=== PATIENT | female | born 1950 | race Caucasian/White ===

== ENCOUNTER 2016-11-20 13:32 | Outpatient (CLI) | payer MEDICARE, MEDICAID ==
[2016-11-20 18:09] LABS: ALBUMIN/GLOBULIN RATIO 1.4 (1.0-2.2); BILIRUBIN,TOTAL 0.7 mg/dL (0.2-1.0); CALCIUM 9.4 mg/dL (8.5-10.3); CREATININE 0.8 mg/dL (0.4-1.0); POTASSIUM 3.8 mmol/L (3.5-5.0); TOTAL PROTEIN 6.8 g/dL (6.7-8.2)
[2016-11-20 18:20] LABS: BASOPHILS # (AUTO) 0.1 10^3/uL (0.0-0.1); BASOPHILS % (AUTO) 0.7 %; EOSINOPHILS # (AUTO) 0.4 10^3/uL (0.0-0.7); EOSINOPHILS % (AUTO) 5.2 %; HGB - HEMOGLOBIN 14.3 g/dL (12.0-16.0); LYMPHOCYTES # (AUTO) 2.1 10^3/uL (1.5-3.5); LYMPHOCYTES % (AUTO) 29.7 %; MEAN CORPUSCULAR HEMOGLOBIN 31.2 pg (27.0-31.0); MEAN CORPUSCULAR VOLUME 91.7 fL (81.0-99.0); MEAN PLATELET VOLUME 7.7 fL (7.9-10.8); MONOCYTES # (AUTO) 0.9 10^3/uL (0.0-1.0); MONOCYTES % (AUTO) 11.9 %; NEUTROPHILS # (AUTO) 3.8 10^3/uL (1.5-6.6); NEUTROPHILS % (AUTO) 52.5 %; RED BLOOD COUNT 4.58 10^6/uL (4.20-5.40); RED CELL DISTRIBUTION WIDTH 13.5 % (12.0-15.0); UNCORRECTED WHITE BLOOD COUNT 7.2 x10^3/uL; WHITE BLOOD COUNT 7.2 x10^3/uL (4.8-10.8)
[2016-11-20 18:30] LABS: HEMOGLOBIN A1C 0.61 g/dL
== END 2016-11-20 13:33 | disposition home or self-care (01) ==
LOC: LAB.F 13:32
PROVIDERS: ATTEND Nurse Practitioner Family
DX: K76.89 Other specified diseases of liver (principal); R73.9 Hyperglycemia, unspecified; F32.9 Major depressive disorder, single episode, unspecified
CPT/HCPCS: 36415; 80053; 83036; 84443; 85025

== ENCOUNTER 2017-04-01 09:16 | Outpatient (CLI) | payer MEDICARE, MEDICAID ==
--- NOTE | 2017-04-01 13:10 | Ultrasound Report ---
COMPLETE ABDOMINAL ULTRASOUND: 04/01/2017 CLINICAL INDICATION: Elevated LFTs, umbilical tender palpable abnormality. TECHNIQUE: Real-time scanning was performed with sales representative publications static images obtained. FINDINGS: The liver measures 15.8 cm. Hepatic echogenicity is increased, compatible with fatty infi ltration, with some focal sparing adjacent to the gallbladder fossa. No suspicious hepatic lesion or intrahepatic biliary dilatation is present. The common bile duct measures 8 mm. The gallbladder de monstrates no cholelithiasis. There is a small echogenic focus adherent to the anterior wall, which may represent a tiny polyp or focus of adherent tumefactive sludge. The pancreas is obscured by kendall l gas. The kidneys are normal, with the right measuring 9.4 cm, and the left measuring 9.2 cm. The spleen measures 9.6 cm, and demonstrates normal echotexture. The abdominal aorta is normal in calibe r throughout. The inferior vena cava is unremarkable. Scanning of the tender palpable abnormality a t the umbilicus demonstrates a focus of echogenic fat, likely within a hernia, but visualization of t he hernia neck is limited by shadowing from the umbilicus. This may be better evaluated with CT. Th e lesion within the hernia sac measures approximately 2 cm in diameter. IMPRESSION: 1. FATTY INFILTRATION OF THE LIVER. 2. TINY FOCUS OF ADHERENT TUMEFACTIVE SLUDGE OR TINY GALLBLADDER WALL POLYP. NO CHOLELITHIASIS. 3. LIKELY UMBILICAL HERNIA, WITH HERNIA SAC MEASURING 2 CM. THE NECK OF THE HERNIA IS DIFFICULT TO VISUALIZE, DUE TO SHADOWING FROM THE UMBILICUS. THIS COULD BE BETTER EVALUATED WITH CT. JOB #: [id number] EXT JOB #:[id number]
== END 2017-04-01 09:17 | disposition home or self-care (01) ==
LOC: DI 09:16
PROVIDERS: ATTEND Nurse Practitioner Family
DX: K76.0 Fatty (change of) liver, not elsewhere classified (principal)
CPT/HCPCS: 76700

== ENCOUNTER 2017-09-15 14:34 | Outpatient (CLI) | payer MEDICARE ==
--- NOTE | 2017-09-15 15:47 | Ultrasound Report ---
PELVIC ULTRASOUND: 09/15/2017 CLINICAL INDICATION: Postmenopausal bleeding. TECHNIQUE: Transabdominal pelvic ultrasound performed for global evaluation. Transvaginal pelvic ultrasound performed for detailed evaluation. Real-time scanning performed and static images obtained. FINDINGS: The uterus is anteverted, measuring 9.9 x 4.3 x 3.2 cm. There is a 3.1 cm leiomyoma in the fundus, obscuring the endometrial canal. The right ovary measures 2.3 x 2.0 x 1.5 cm, and is unremarkable. The left ovary measures 2.5 x 1.8 x 1.7 cm, and is unremarkable. No free fluid is present. IMPRESSION: FUNDAL LEIOMYOMA, OBSCURING THE ENDOMETRIAL CANAL. CORRELATION WITH ENDOMETRIAL BIOPSY IS RECOMMENDED, GIVEN THE HISTORY OF POSTMENOPAUSAL BLEEDING. TD: 09/15/2017 15:45
== END 2017-09-15 14:35 | disposition home or self-care (01) ==
LOC: DI 14:34
PROVIDERS: ATTEND Nurse Practitioner Family
DX: D25.9 Leiomyoma of uterus, unspecified (principal)
CPT/HCPCS: 76830; 76856

== ENCOUNTER 2017-09-17 10:00 | Outpatient (CLI) | payer MEDICAID, MEDICARE | END 2017-09-17 10:01 | disposition home or self-care (01) | LOC: LAB.R 10:00 | PROVIDERS: ATTEND Nurse Practitioner Family | DX: N95.9 Unspecified menopausal and perimenopausal disorder (principal); R82.90 Unspecified abnormal findings in urine | CPT/HCPCS: 87086 ==

== ENCOUNTER 2017-10-06 11:06 | Outpatient (CLI) | payer MEDICARE ==
--- NOTE | 2017-10-07 10:28 | Mammography Report ---
DIGITAL SCREENING MAMMOGRAM: 10/06/2017 CLINICAL INDICATION: A 67-year-old with history of late childbearing, family history of breast cancer, history of benign biopsy for screening. COMPARISON: 11/2012, 11/2010, 10/2010, 03/2010. TECHNIQUE: Routine CC and MLO projections were obtained of the breasts. FINDINGS: The breasts demonstrate heterogeneously dense fibroglandular parenchyma bilaterally. A few punctate, typically benign calcifications are present. No suspicious masses, clustered microcalcifications, or regions of architectural distortion are identified. IMPRESSION: BENIGN FINDINGS. RECOMMENDATION: Routine annual screening unless otherwise clinically indicated. BIRADS CATEGORY 2 - BENIGN FINDINGS. STANDARD QUALIFYING STATEMENTS: 1. This examination was reviewed with the aid of Computer-Aided Detection (CAD). 2. A negative or benign imaging report should not delay biopsy if clinically suspicious findings are present. Consider surgical consultation if warranted. More than 5% of cancers are not identified by imaging. 3. Dense breasts may obscure an underlying neoplasm. TD: 10/07/2017 10:27
== END 2017-10-06 11:07 | disposition home or self-care (01) ==
LOC: DI.S 11:06
PROVIDERS: ATTEND Nurse Practitioner Family
DX: Z12.31 Encounter for screening mammogram for malignant neoplasm of breast (principal); Z80.3 Family history of malignant neoplasm of breast
CPT/HCPCS: 77067

== ENCOUNTER 2017-12-09 14:33 | Outpatient (CLI) | payer MEDICARE ==
[2017-12-09 18:02] LABS: BASOPHILS # (AUTO) 0.1 10^3/uL (0.0-0.1); BASOPHILS % (AUTO) 0.8 %; EOSINOPHILS # (AUTO) 0.5 10^3/uL (0.0-0.7); EOSINOPHILS % (AUTO) 6.2 %; HGB - HEMOGLOBIN 14.3 g/dL (12.0-16.0); LYMPHOCYTES # (AUTO) 1.9 10^3/uL (1.5-3.5); LYMPHOCYTES % (AUTO) 24.6 %; MEAN CORPUSCULAR HEMOGLOBIN 31.8 pg (27.0-31.0); MEAN CORPUSCULAR HGB CONC 34.4 g/dL (32.0-36.0); MEAN CORPUSCULAR VOLUME 92.4 fL (81.0-99.0); MEAN PLATELET VOLUME 7.4 fL (7.9-10.8); MONOCYTES # (AUTO) 0.8 10^3/uL (0.0-1.0); MONOCYTES % (AUTO) 10.1 %; NEUTROPHILS # (AUTO) 4.5 10^3/uL (1.5-6.6); NEUTROPHILS % (AUTO) 58.3 %; PLT - PLATELET COUNT 280 10^3/uL (130-450); RED CELL DISTRIBUTION WIDTH 13.4 % (12.0-15.0); WHITE BLOOD COUNT 7.8 x10^3/uL (4.8-10.8)
[2017-12-09 19:34] LABS: RHEUMATOID FACTOR NEGATIVE (Negative)
[2017-12-11 13:38] LABS: ANA SCREEN NEGATIVE (NEGATIVE)
== END 2017-12-09 14:34 | disposition home or self-care (01) ==
LOC: LAB.F 14:33
PROVIDERS: ATTEND Nurse Practitioner Family
DX: M25.552 Pain in left hip (principal); M79.641 Pain in right hand
CPT/HCPCS: 36415; 85025; 85651; 86038; 86140; 86200; 86430

== ENCOUNTER 2017-12-19 09:22 | Outpatient (CLI) | payer MEDICARE | END 2017-12-19 09:23 | disposition home or self-care (01) | LOC: LAB.F 09:22 | PROVIDERS: ATTEND Nurse Practitioner Family | DX: Z53.9 Procedure and treatment not carried out, unspecified reason (principal) ==

== ENCOUNTER 2017-12-29 08:33 | Outpatient (CLI) | payer MEDICARE, MEDICAID ==
[2017-12-29 12:03] LABS: HB2 TOTAL 15.7 g/dL; HEMOGLOBIN A1C 0.58 g/dL; HEMOGLOBIN A1C % 5.5 % (4.6-6.2)
[2017-12-29 12:32] LABS: ALBUMIN 3.5 g/dL (3.2-5.5); ALBUMIN/GLOBULIN RATIO 1.3 (1.0-2.2); ALKALINE PHOSPHATASE 52 IU/L (42-121); ALT ALANINE AMINOTRANSFERASE 90 IU/L (10-60); AST ASPARTATE AMINOTRANSFERASE 77 IU/L (10-42); BUN - BLOOD UREA NITROGEN 17 mg/dL (6-20); CALCIUM 8.9 mg/dL (8.5-10.3); CARBON DIOXIDE - CO2 30 mmol/L (21-32); CHLORIDE 103 mmol/L (101-111); CHOL/HDL RATIO 1.9 (<4.4); CHOLESTEROL 138 mg/dL; CREATININE 0.7 mg/dL (0.4-1.0); GFR - MDRD 83 (>89); GLUCOSE 108 mg/dL (70-100); HDL CHOLESTEROL 73 mg/dL; LDL CHOLESTEROL,CALCULATED 55 mg/dL; LDL/HDL RATIO 0.8 (<4.4); SODIUM 139 mmol/L (135-145); TOTAL PROTEIN 6.2 g/dL (6.7-8.2); VLDL CHOLESTEROL 10 mg/dL
== END 2017-12-29 08:34 | disposition home or self-care (01) ==
LOC: LAB.F 08:33
PROVIDERS: ATTEND Nurse Practitioner Family
DX: I10 Essential (primary) hypertension (principal); R73.9 Hyperglycemia, unspecified; N95.0 Postmenopausal bleeding
CPT/HCPCS: 36415; 80053; 80061; 83036; 83721; 84443

== ENCOUNTER 2018-01-07 08:31 | Outpatient (CLI) | payer MEDICARE, MEDICAID ==
--- NOTE | 2018-01-07 09:42 | XRAY Report ---
Procedure Date: 01/07/2018 Accession Number: [id number] / [id number] Procedure: XR - Lumbar Spine 2 View CPT Code: FULL RESULT: EXAM: Lumbar Spine 2 View DATE: 01/07/2018 9:17 AM CLINICAL HISTORY: LOW BACK AND HIP JOINT PAIN COMPARISON: 03/22/2013. TECHNIQUE: 2 views. FINDINGS: Alignment: Interval improvement in previously seen dextroscoliosis. No listhesis. Bones: Five gac-voy-vhwcmcv lumbar vertebral bodies are present. No fractures or bone lesions. Disks: Mild loss of disc space height most pronounced at T11-T12, T12-L1 and L1-L2. Facets: Minimal degenerative changes at L4-L5. Sacroiliac Joints: Unremarkable. Soft Tissues: Normal. The visualized bowel gas pattern is normal. IMPRESSION: Interval improvement in previously seen scoliosis, possibly positional. RADIA
--- NOTE | 2018-01-07 09:44 | XRAY Report ---
Procedure Date: 01/07/2018 Accession Number: [id number] / [id number] Procedure: XR - Hip w/Pelvis 1V LT CPT Code: FULL RESULT: EXAM: Hip w/Pelvis 1V LT DATE: 01/07/2018 9:17 AM CLINICAL HISTORY: LOW BACK AND HIP JOINT PAIN, LEFT COMPARISON: 01/15/2013. TECHNIQUE: 1 view of the pelvis and 1 view of the hip. FINDINGS: Bones: Normal. No fracture or bone lesion. Joints: Stable joint space loss at the femoral acetabular joints. The sacroiliac joints are congruent. Visualized spine is unremarkable. Soft Tissues: Stable phleboliths. IMPRESSION: Stable femoral acetabular osteoarthrosis. RADIA
== END 2018-01-07 08:32 | disposition home or self-care (01) ==
LOC: DI 08:31 → DI.S 08:32
PROVIDERS: ATTEND Nurse Practitioner Family
DX: M51.36 Other intervertebral disc degeneration, lumbar region (principal); M51.34 Other intervertebral disc degeneration, thoracic region; M47.896 Other spondylosis, lumbar region; M16.12 Unilateral primary osteoarthritis, left hip
CPT/HCPCS: 72100

== ENCOUNTER 2019-01-05 11:03 | Outpatient (CLI) | payer MEDICARE, MEDICAID ==
[2019-01-05 17:38] LABS: BASOPHILS # (AUTO) 0.1 10^3/uL (0.0-0.1); BASOPHILS % (AUTO) 0.9 %; EOSINOPHILS # (AUTO) 0.5 10^3/uL (0.0-0.7); EOSINOPHILS % (AUTO) 6.6 %; HGB - HEMOGLOBIN 14.1 g/dL (12.0-16.0); LYMPHOCYTES # (AUTO) 1.9 10^3/uL (1.5-3.5); LYMPHOCYTES % (AUTO) 25.9 %; MEAN CORPUSCULAR HEMOGLOBIN 30.5 pg (27.0-31.0); MEAN CORPUSCULAR HGB CONC 32.6 g/dL (32.0-36.0); MEAN CORPUSCULAR VOLUME 93.7 fL (81.0-99.0); MEAN PLATELET VOLUME 9.4 fL (7.9-10.8); MONOCYTES # (AUTO) 0.8 10^3/uL (0.0-1.0); MONOCYTES % (AUTO) 10.1 %; NEUTROPHILS # (AUTO) 4.2 10^3/uL (1.5-6.6); NEUTROPHILS % (AUTO) 56.4 %; PLT - PLATELET COUNT 313 10^3/uL (130-450); RED BLOOD COUNT 4.62 10^6/uL (4.20-5.40); RED CELL DISTRIBUTION WIDTH 12.9 % (12.0-15.0); WHITE BLOOD COUNT 7.4 x10^3/uL (4.8-10.8)
[2019-01-05 18:02] LABS: ALBUMIN/GLOBULIN RATIO 1.2 (1.0-2.2); ALKALINE PHOSPHATASE 58 IU/L (42-121); ALT ALANINE AMINOTRANSFERASE 62 IU/L (10-60); AST ASPARTATE AMINOTRANSFERASE 62 IU/L (10-42); BUN - BLOOD UREA NITROGEN 11 mg/dL (6-20); CALCIUM 10.1 mg/dL (8.5-10.3); CARBON DIOXIDE - CO2 28 mmol/L (21-32); CHLORIDE 103 mmol/L (101-111); CHOL/HDL RATIO 2.2 (<4.4); CHOLESTEROL 141 mg/dL; CREATININE 0.8 mg/dL (0.4-1.0); GFR - MDRD 71 (>89); GLUCOSE 112 mg/dL (70-100); HB2 TOTAL 14.9 g/dL; HDL CHOLESTEROL 65 mg/dL; HEMOGLOBIN A1C 0.57 g/dL; HEMOGLOBIN A1C % 5.7 % (4.6-6.2); LDL CHOLESTEROL,CALCULATED 65 mg/dL; SODIUM 142 mmol/L (135-145); TOTAL PROTEIN 7.3 g/dL (6.7-8.2); VLDL CHOLESTEROL 11 mg/dL
== END 2019-01-05 11:04 | disposition home or self-care (01) ==
LOC: LAB.S 11:03
PROVIDERS: ATTEND Registered Nurse
DX: K74.60 Unspecified cirrhosis of liver (principal); N95.9 Unspecified menopausal and perimenopausal disorder; K76.89 Other specified diseases of liver; I10 Essential (primary) hypertension; E66.9 Obesity, unspecified; R73.9 Hyperglycemia, unspecified
CPT/HCPCS: 36415; 80053; 80061; 83036; 83721; 84443; 85025

== ENCOUNTER 2019-04-15 13:43 | Outpatient (CLI) | payer MEDICARE, MEDICAID ==
[2019-04-15 17:27] LABS: ALBUMIN 4.2 g/dL (3.2-5.5); BILIRUBIN,DIRECT 0.1 mg/dL (0.1-0.5); BILIRUBIN,TOTAL 1.2 mg/dL (0.2-1.0); TOTAL PROTEIN 7.3 g/dL (6.7-8.2)
--- NOTE | 2019-04-15 19:59 | XRAY Report ---
Reason: COUGH, R05 Procedure Date: 04/15/2019 Accession Number: [id number] / [id number] Procedure: XRS - Chest 2 View X-Ray CPT Code: 57113 FULL RESULT: EXAM: CHEST RADIOGRAPHY EXAM DATE: 04/15/2019 02:06 PM. CLINICAL HISTORY: COUGH, R05. COMPARISON: None. TECHNIQUE: 2 views. FINDINGS: Lungs/Pleura: No focal opacities evident. No pleural effusion. No pneumothorax. Normal volumes. Mediastinum: Heart and mediastinal contours are unremarkable. Other: Unremarkable bony structures IMPRESSION: No acute findings 2-view chest radiography. RADIA
== END 2019-04-15 13:44 | disposition home or self-care (01) ==
LOC: DI.S 13:43
PROVIDERS: ATTEND Registered Nurse
DX: R05 Cough (principal); K76.9 Liver disease, unspecified
CPT/HCPCS: 36415; 71046; 80076

== ENCOUNTER 2019-07-05 11:14 | Outpatient (CLI) | payer MEDICARE ==
--- NOTE | 2019-07-05 16:21 | XRAY Report ---
Reason: ABD PAIN, CHRONIC Procedure Date: 07/05/2019 Accession Number: [id number] / [id number] Procedure: XRS - Abdomen 2 View X-Ray CPT Code: 98221 Final Report FULL RESULT: EXAM: ABDOMEN RADIOGRAPHY EXAM DATE: 07/05/2019 11:43 AM. CLINICAL HISTORY: Abdominal pain, chronic. COMPARISON: None. TECHNIQUE: 2 views. FINDINGS: Lung Bases: Unremarkable. Bowel Gas Pattern: Within normal limits. No dilated loops or abnormal fluid levels. Free Air: None. Other: None. IMPRESSION: Nonobstructive bowel gas pattern. RADIA
== END 2019-07-05 11:15 | disposition home or self-care (01) ==
LOC: DI.S 11:14
PROVIDERS: ATTEND Registered Nurse
DX: R10.9 Unspecified abdominal pain (principal); K76.9 Liver disease, unspecified; G89.29 Other chronic pain
CPT/HCPCS: 36415; 74019; 80053; 82150; 82248; 83690; 85025

== ENCOUNTER 2019-07-05 11:20 | Outpatient (CLI) | payer MEDICARE ==
[2019-07-05 17:17] LABS: BASOPHILS # (AUTO) 0.1 10^3/uL (0.0-0.1); BASOPHILS % (AUTO) 0.6 %; EOSINOPHILS # (AUTO) 0.5 10^3/uL (0.0-0.7); EOSINOPHILS % (AUTO) 5.5 %; HGB - HEMOGLOBIN 14.5 g/dL (12.0-16.0); LYMPHOCYTES # (AUTO) 2.7 10^3/uL (1.5-3.5); LYMPHOCYTES % (AUTO) 33.2 %; MEAN CORPUSCULAR HEMOGLOBIN 30.3 pg (27.0-31.0); MEAN CORPUSCULAR VOLUME 91.6 fL (81.0-99.0); MEAN PLATELET VOLUME 9.3 fL (7.9-10.8); MONOCYTES # (AUTO) 0.7 10^3/uL (0.0-1.0); MONOCYTES % (AUTO) 8.4 %; NEUTROPHILS # (AUTO) 4.2 10^3/uL (1.5-6.6); NEUTROPHILS % (AUTO) 51.8 %; PLT - PLATELET COUNT 312 10^3/uL (130-450); RED BLOOD COUNT 4.79 10^6/uL (4.20-5.40); RED CELL DISTRIBUTION WIDTH 13.1 % (12.0-15.0); WHITE BLOOD COUNT 8.1 x10^3/uL (4.8-10.8)
[2019-07-05 17:36] LABS: ALBUMIN 4.1 g/dL (3.2-5.5); ALBUMIN/GLOBULIN RATIO 1.3 (1.0-2.2); BILIRUBIN,DIRECT 0.2 mg/dL (0.1-0.5); BILIRUBIN,TOTAL 1.2 mg/dL (0.2-1.0); CALCIUM 9.6 mg/dL (8.5-10.3); CREATININE 0.9 mg/dL (0.4-1.0); TOTAL PROTEIN 7.3 g/dL (6.7-8.2)
== END 2019-07-05 11:21 | disposition home or self-care (01) ==
LOC: LAB.S 11:20
PROVIDERS: ATTEND Registered Nurse
DX: K76.9 Liver disease, unspecified (principal); G89.29 Other chronic pain; R10.9 Unspecified abdominal pain
CPT/HCPCS: 36415; 80053; 82150; 82248; 83690; 85025

== ENCOUNTER 2020-02-14 08:34 | Outpatient (CLI) | payer MEDICARE ==
--- NOTE | 2020-02-14 10:40 | Ultrasound Report ---
PROCEDURE: Abdomen Limited INDICATIONS: FATTY INFILTRATION OF THE LIVER TECHNIQUE: Real-time focused scanning was performed of the abdomen, with image documentation. COMPARISON: 04/01/2017, 12/29/2015 and 12/06/2014 FINDINGS: Liver is normal in size. Liver is diffusely echogenic. No focal hepatic mass lesions. Gallbladder is sonographically normal. No gallstones. No gallbladder wall thickening. Gallbladder wal l measures 1.7 mm. No pericholecystic fluid. No sonographic Fung's sign. Biliary tree is mildly dilated with common bile duct measuring 8.1 mm. Head and body pancreas are sonographically normal. Tail is not visualized due to bowel gas and cannot be evaluated. Right kidney is sonographically normal. IMPRESSION: 1. Mild dilatation of the common bile duct which measures 8.1 mm in diameter. Finding concerning for distal common bile duct obstruction. Recommend correlation with clinical and laboratory data. If clin ically indicated MRCP could be performed for further evaluation. 2. Echogenic liver. Finding typically represents fatty alteration, however the finding is nonspecific and other etiologies including hepatic cirrhosis can produce a similar appearance. Recommend correla tion with clinical and laboratory data. Reviewed by: Lesley Hay MD, PhD on 02/14/2020 10:39 AM PDT Approved by: Lesley Hay MD, PhD on 02/14/2020 10:39 AM PDT Station ID: [id number]
== END 2020-02-14 08:35 | disposition home or self-care (01) ==
LOC: DI 08:34
PROVIDERS: ATTEND Internal Medicine Gastroenterology
DX: R93.2 Abnormal findings on diagnostic imaging of liver and biliary tract (principal)
CPT/HCPCS: 76705

== ENCOUNTER 2020-02-29 10:12 | Outpatient (CLI) | payer MEDICARE ==
[2020-02-29 14:49] LABS: BASOPHILS # (AUTO) 0.1 10^3/uL (0.0-0.1); BASOPHILS % (AUTO) 0.9 %; EOSINOPHILS # (AUTO) 0.4 10^3/uL (0.0-0.7); EOSINOPHILS % (AUTO) 6.3 %; HGB - HEMOGLOBIN 14.2 g/dL (12.0-16.0); LYMPHOCYTES # (AUTO) 2.3 10^3/uL (1.5-3.5); LYMPHOCYTES % (AUTO) 32.8 %; MEAN CORPUSCULAR HEMOGLOBIN 31.4 pg (27.0-31.0); MEAN CORPUSCULAR HGB CONC 33.5 g/dL (32.0-36.0); MEAN CORPUSCULAR VOLUME 93.8 fL (81.0-99.0); MEAN PLATELET VOLUME 9.2 fL (7.9-10.8); MONOCYTES # (AUTO) 0.8 10^3/uL (0.0-1.0); MONOCYTES % (AUTO) 10.9 %; NEUTROPHILS # (AUTO) 3.4 10^3/uL (1.5-6.6); PLT - PLATELET COUNT 290 10^3/uL (130-450); RED BLOOD COUNT 4.52 10^6/uL (4.20-5.40); RED CELL DISTRIBUTION WIDTH 13.2 % (12.0-15.0); WHITE BLOOD COUNT 6.9 x10^3/uL (4.8-10.8)
[2020-02-29 15:26] LABS: ALBUMIN/GLOBULIN RATIO 1.3 (1.0-2.2); ALKALINE PHOSPHATASE 57 IU/L (42-121); ALT ALANINE AMINOTRANSFERASE 39 IU/L (10-60); AST ASPARTATE AMINOTRANSFERASE 36 IU/L (10-42); BILIRUBIN,TOTAL 1.1 mg/dL (0.2-1.0); BUN - BLOOD UREA NITROGEN 15 mg/dL (6-20); CALCIUM 9.1 mg/dL (8.5-10.3); CARBON DIOXIDE - CO2 28 mmol/L (21-32); CHLORIDE 101 mmol/L (101-111); CHOL/HDL RATIO 2.2 (<4.4); CHOLESTEROL 154 mg/dL; CREATININE 0.7 mg/dL (0.4-1.0); GLUCOSE 122 mg/dL (70-100); HDL CHOLESTEROL 70 mg/dL; LDL CHOLESTEROL,CALCULATED 71 mg/dL; SODIUM 138 mmol/L (135-145); VLDL CHOLESTEROL 13 mg/dL
== END 2020-02-29 10:13 | disposition home or self-care (01) ==
LOC: LAB.S 10:12
PROVIDERS: ATTEND Registered Nurse
DX: I10 Essential (primary) hypertension (principal); K21.9 Gastro-esophageal reflux disease without esophagitis; J45.909 Unspecified asthma, uncomplicated; K76.9 Liver disease, unspecified; K57.90 Diverticulosis of intestine, part unspecified, without perforation or abscess without bleeding; F41.8 Other specified anxiety disorders
CPT/HCPCS: 36415; 80053; 80061; 83721; 84443; 85025

== ENCOUNTER 2020-05-29 11:35 | Outpatient (CLI) | payer MEDICARE | END 2020-05-29 11:36 | disposition home or self-care (01) | LOC: LAB.S 11:35 | PROVIDERS: ATTEND Registered Nurse | DX: Z53.9 Procedure and treatment not carried out, unspecified reason (principal) ==

== ENCOUNTER 2020-08-22 12:17 | Outpatient (CLI) | payer MEDICARE ==
--- NOTE | 2020-08-22 17:33 | XRAY Report ---
PROCEDURE: Knee 2 View RT INDICATIONS: KNEE PAIN, RIGHT TECHNIQUE: 2 views of the right knee(s) were acquired. COMPARISON: None. FINDINGS: Bones: No fractures or dislocations. No suspicious bony lesions. Moderate medial patellofemoral com partment narrowing. Small patellar osteophyte is present. No erosions. Soft tissues: Minimal joint effusion. No suspicious soft tissue calcifications. IMPRESSION: Moderate arthritic change most notable in the medial and patellofemoral compartments. Reviewed by: Anaid Madrigal MD on 08/22/2020 5:32 PM PST Approved by: Anaid Madrigal MD on 08/22/2020 5:32 PM PST Station ID: [id number]
== END 2020-08-22 12:18 | disposition home or self-care (01) ==
LOC: DI.S 12:17
PROVIDERS: ATTEND Registered Nurse
DX: M17.11 Unilateral primary osteoarthritis, right knee (principal)

== ENCOUNTER 2020-09-13 08:44 | Outpatient (CLI) | payer MEDICARE ==
--- NOTE | 2020-09-14 07:46 | Mammography Report ---
BILATERAL DIGITAL SCREENING MAMMOGRAM 3D/2D WITH EXAGGERATED CC: 09/13/2020 CLINICAL: Family history of breast cancer. Comparison is made to exams dated: 10/06/2017 mammogram, 11/27/2012 mammogram, and 10/29/2010 mammogram - [facility]. The tissue of both breasts is predominantly fatty. There is a focal asymmetry in the left breast central to the nipple in the retroareolar region. Ther e is architectural distortion associated with the focal asymmetry. No other significant masses, calcifications, or other findings are seen in either breast. IMPRESSION: INCOMPLETE: NEEDS ADDITIONAL IMAGING EVALUATION The focal asymmetry in the left breast is indeterminate. Additional views with possible ultrasound a re recommended. This exam was interpreted at Station ID: [id number]. NOTE: For mammograms, a report in lay terms will be sent to the patient. Approximately 15% of breast malignancies will not be visualized mammographically. In the management of a palpable breast mass, a negative mammogram must not discourage biopsy of a clinically suspicious lesion. Electronically Signed By: Edgar Peña M.D., jr/vesta:09/13/2020 15:52:52 ACR BI-RADS Category 0: Incomplete 3340F PARENCHYMAL PATTERN: (F) - The breast(s) demonstrate(s) diffuse fatty replacement. BI-RADS CATEGORY: (0) - 0 Mammo and US [id number] Immediate follow-up LATERALITY: (B)
== END 2020-09-13 08:45 | disposition home or self-care (01) ==
LOC: DI.S 08:44
PROVIDERS: ATTEND Registered Nurse
DX: Z12.31 Encounter for screening mammogram for malignant neoplasm of breast (principal); Z80.3 Family history of malignant neoplasm of breast; N64.89 Other specified disorders of breast

== ENCOUNTER 2020-10-05 10:02 | Outpatient (CLI) | payer MEDICARE ==
--- NOTE | 2020-10-06 12:38 | Mammography Report ---
UNILATERAL LEFT DIGITAL DIAGNOSTIC MAMMOGRAM 3D/2D: 10/05/2020 CLINICAL: Patient returns today to evaluate a focal asymmetry in the left breast. Comparison is made to exams dated: 09/13/2020 mammogram and 10/06/2017 mammogram - [facility]. The tissue of left breast is heterogeneously dense. This may lower the sensitivity of matilde mography. There is an irregular focal asymmetry with an indistinct margin in the left breast central to the nip ple in the retroareolar region. This is seen in additional views. There is possible architectural distortion associated with the focal asymmetry. No other significant masses or calcifications are seen in the breast. IMPRESSION: INCOMPLETE: NEEDS ADDITIONAL IMAGING EVALUATION The irregular focal asymmetry in the left breast is indeterminate. An ultrasound is recommended. Ta rgeted ultrasound is recommended for further evaluation, which will be performed immediately followin g this exam. This exam was interpreted at Station ID: [id number]. NOTE: For mammograms, a report in lay terms will be sent to the patient. Approximately 15% of breast malignancies will not be visualized mammographically. In the management of a palpable breast mass, a negative mammogram must not discourage biopsy of a clinically suspicious lesion. Electronically Signed By: Hayden bronson/vesta:10/05/2020 12:05:26 ACR BI-RADS Category 0: Incomplete 3340F PARENCHYMAL PATTERN: (D) - The breast(s) demonstrate(s) heterogeneously dense fibroglandular joseph king. BI-RADS CATEGORY: (0) - 0 Ultrasound [id number] Immediate follow-up LATERALITY: (L)
--- NOTE | 2020-10-06 12:38 | Ultrasound Report ---
LIMITED ULTRASOUND OF LEFT BREAST: 10/05/2020 CLINICAL: Patient returns today to evaluate a focal asymmetry in the left breast. Comparison is made to exams dated: 10/05/2020 mammogram, 09/13/2020 mammogram, and 10/06/2017 mammogram - [facility]. Color flow ultrasound of the left breast retroareolar was performed. Short scale images of the real- time examination were reviewed. There is a 0.3 cm x 0.5 cm x 0.3 cm irregular cyst with an irregular internal wall in the left breast central to the nipple in the retroareolar region. This irregular cyst is hypoechoic with posterior acoustic enhancement. This correlates with mammography findings. There also is a 0.5 cm x 0.6 cm x 0.2 cm irregular cyst with a smooth internal wall in the left breas t at 3 o'clock anterior depth 2 cm from the nipple. This irregular cyst is hypoechoic. This correla akbar as an incidental finding. IMPRESSION: PROBABLY BENIGN The 0.3 cm x 0.5 cm x 0.3 cm irregular cyst in the left breast central to the nipple in the retroareo lar region is consistent with a complicated cyst and is probably benign. The 0.5 cm x 0.6 cm x 0.2 cm irregular cyst in the left breast at 3 o'clock anterior depth most likel y is a complicated cyst and is probably benign. A follow-up left mammogram and an ultrasound in 6 months is recommended to demonstrate stability. This exam was interpreted at Station ID: [id number]. Electronically Signed By: Hayden bronson/vesta:10/05/2020 12:09:38 Ultrasound BI-RADS: 3 Probably benign BI-RADS CATEGORY: (3) - 3 Mammo and US [id number] 6 month follow-up LATERALITY: (L)
== END 2020-10-05 10:03 | disposition home or self-care (01) ==
LOC: DI 10:02
PROVIDERS: ATTEND Registered Nurse
DX: N60.12 Diffuse cystic mastopathy of left breast (principal)

== ENCOUNTER 2020-10-31 08:00 | Outpatient (CLI) | payer MEDICARE ==
--- NOTE | 2020-10-31 17:12 | XRAY Report ---
PROCEDURE: Chest 2 View X-Ray INDICATIONS: ATYPICAL CHEST PAIN TECHNIQUE: 2 view(s) of the chest. COMPARISON: None. FINDINGS: Surgical changes and devices: None. Lungs and pleura: No pleural effusions or pneumothorax. Lungs are clear. Mediastinum: Mediastinal contours are normal. Heart size is normal. Bones and chest wall: No suspicious bony abnormalities. Soft tissues appear unremarkable. IMPRESSION: Normal for age, source of current symptoms is not seen. Reviewed by: Louis Philip MD on 10/31/2020 5:11 PM PDT Approved by: Louis Philip MD on 10/31/2020 5:11 PM PDT Station ID: [id number]
== END 2020-10-31 23:59 | disposition home or self-care (01) ==
LOC: DI.S 08:00
PROVIDERS: ATTEND Physician Assistant Medical
DX: R05 Cough (principal); R07.89 Other chest pain

== ENCOUNTER 2021-04-02 11:08 | Outpatient (CLI) | payer MEDICARE ==
[2021-04-02 14:33] LABS: BASOPHILS # (AUTO) 0.1 10^3/uL (0.0-0.1); BASOPHILS % (AUTO) 0.9 %; EOSINOPHILS # (AUTO) 0.5 10^3/uL (0.0-0.7); EOSINOPHILS % (AUTO) 6.7 %; HCT - HEMATOCRIT 43.9 % (37.0-47.0); HGB - HEMOGLOBIN 14.3 g/dL (12.0-16.0); LYMPHOCYTES # (AUTO) 2.3 10^3/uL (1.5-3.5); LYMPHOCYTES % (AUTO) 30.4 %; MEAN CORPUSCULAR HEMOGLOBIN 30.5 pg (27.0-31.0); MEAN CORPUSCULAR HGB CONC 32.6 g/dL (32.0-36.0); MEAN CORPUSCULAR VOLUME 93.6 fL (81.0-99.0); MEAN PLATELET VOLUME 9.3 fL (7.9-10.8); MONOCYTES # (AUTO) 0.7 10^3/uL (0.0-1.0); MONOCYTES % (AUTO) 8.5 %; NEUTROPHILS # (AUTO) 4.1 10^3/uL (1.5-6.6); NEUTROPHILS % (AUTO) 53.1 %; PLT - PLATELET COUNT 254 10^3/uL (130-450); RED BLOOD COUNT 4.69 10^6/uL (4.20-5.40); RED CELL DISTRIBUTION WIDTH 13.7 % (12.0-15.0); WHITE BLOOD COUNT 7.7 x10^3/uL (4.8-10.8)
[2021-04-02 15:41] LABS: ALBUMIN/GLOBULIN RATIO 1.3 (1.0-2.2); ALKALINE PHOSPHATASE 62 IU/L (42-121); ALT ALANINE AMINOTRANSFERASE 64 IU/L (10-60); AST ASPARTATE AMINOTRANSFERASE 53 IU/L (10-42); BILIRUBIN,TOTAL 1.2 mg/dL (0.2-1.0); BUN - BLOOD UREA NITROGEN 17 mg/dL (6-20); CALCIUM 9.4 mg/dL (8.5-10.3); CARBON DIOXIDE - CO2 28 mmol/L (21-32); CHLORIDE 101 mmol/L (101-111); CHOLESTEROL 165 mg/dL; CREATININE 0.8 mg/dL (0.4-1.0); GFR - MDRD 71 (>89); GLUCOSE 112 mg/dL (70-100); POTASSIUM 3.5 mmol/L (3.5-5.0); SODIUM 140 mmol/L (135-145); TRIGLYCERIDES 87 mg/dL; VLDL CHOLESTEROL 17 mg/dL
[2021-04-02 15:47] LABS: THYROID STIMULATING HORMONE 1.91 uIU/mL (0.34-5.60)
[2021-04-02 16:36] LABS: BILIRUBIN,DIRECT 0.1 mg/dL (0.1-0.5); CHOL/HDL RATIO 2.3 (<4.4); HDL CHOLESTEROL 72 mg/dL; LDL CHOLESTEROL,CALCULATED 76 mg/dL; LDL/HDL RATIO 1.1 (<4.4)
[2021-04-03 12:17] LABS: HEPATITIS B SURFACE ANTIGEN NON-REACTIVE (NON-REACTIVE)
== END 2021-04-02 11:09 | disposition home or self-care (01) ==
LOC: LAB.S 11:08
PROVIDERS: ATTEND Registered Nurse
DX: R10.9 Unspecified abdominal pain (principal); G89.29 Other chronic pain; K76.9 Liver disease, unspecified; I10 Essential (primary) hypertension; K21.9 Gastro-esophageal reflux disease without esophagitis; J45.909 Unspecified asthma, uncomplicated
CPT/HCPCS: 36415; 80053; 80061; 80076; 83721; 84443; 85025; 87340

== ENCOUNTER 2021-07-04 09:45 | Outpatient (CLI) | payer MEDICARE ==
--- NOTE | 2021-07-05 07:25 | Ultrasound Report ---
LIMITED ULTRASOUND OF LEFT BREAST: 07/04/2021 CLINICAL: 6 month follow-up of cysts. Comparison is made to exams dated: 07/04/2021 mammogram, 10/05/2020 ultrasound, 10/05/2020 mammogram, mammogram, and 10/06/2017 mammogram - [facility]. Color flow and real-time ultrasound of the left breast 3 o'clock, and retroareolar regions were perf ormed. Short scale images of the real-time examination were reviewed. There is a 0.3 cm x 0.5 cm x 0.2 cm irregular cyst with an irregular internal wall in the left breast central to the nipple in the retroareolar region. This irregular cyst is hypoechoic with posterior acoustic enhancement. This abnormality is not significantly changed and correlates with mammography findings. There also is a 0.5 cm x 0.6 cm x 0.2 cm irregular cyst with a smooth internal wall in the left breas t at 3 o'clock anterior depth 2 cm from the nipple. This irregular cyst is hypoechoic. This abnorma lity is not significantly changed and correlates as an incidental finding. IMPRESSION: PROBABLY BENIGN The 0.3 cm x 0.5 cm x 0.2 cm irregular cyst in the left breast central to the nipple in the retroareo lar region is consistent with a complicated cyst and is probably benign. The 0.5 cm x 0.6 cm x 0.2 cm irregular cyst in the left breast at 3 o'clock anterior depth most likel y is a complicated cyst and is probably benign. A follow-up left mammogram and an ultrasound in 6 months is recommended to demonstrate stability. This exam was interpreted at Station ID: [id number]. Electronically Signed By: Hayden bronson/vesta:07/04/2021 11:58:13 Ultrasound BI-RADS: 3 Probably benign BI-RADS CATEGORY: (3) - 3 Mammo and US [id number] 6 month follow-up LATERALITY: (L)
--- NOTE | 2021-07-05 07:25 | Mammography Report ---
BILATERAL DIGITAL DIAGNOSTIC MAMMOGRAM 3D/2D: 07/04/2021 CLINICAL: Patient returns for a 6 month follow up of the left breast, due for bilateral exam. Comparison is made to exams dated: 10/05/2020 ultrasound, 10/05/2020 mammogram, 09/13/2020 mammogram, a nd 10/06/2017 mammogram - [facility]. The tissue of both breasts is heterogeneously dense. This may lower the sensitivity of mammography. There is an irregular focal asymmetry with an indistinct margin in the left breast central to the nip ple in the retroareolar region. This is not significantly changed. There is possible architectural distortion associated with the focal asymmetry. No other significant masses, calcifications, or other findings are seen in either breast. IMPRESSION: INCOMPLETE: NEEDS ADDITIONAL IMAGING EVALUATION The irregular focal asymmetry in the left breast is indeterminate. An ultrasound is recommended. Ta rgeted ultrasound is recommended for further evaluation, which will be performed immediately followin g this exam. This exam was interpreted at Station ID: [id number]. NOTE: For mammograms, a report in lay terms will be sent to the patient. Approximately 15% of breast malignancies will not be visualized mammographically. In the management of a palpable breast mass, a negative mammogram must not discourage biopsy of a clinically suspicious lesion. Electronically Signed By: Hayden bronson/vesta:07/04/2021 11:56:02 ACR BI-RADS Category 0: Incomplete 3340F PARENCHYMAL PATTERN: (D) - The breast(s) demonstrate(s) heterogeneously dense fibroglandular partetey fernando. BI-RADS CATEGORY: (0) - 0 Ultrasound [id number] Immediate follow-up LATERALITY: (L)
== END 2021-07-04 09:46 | disposition home or self-care (01) ==
LOC: DI 09:45
PROVIDERS: ATTEND Registered Nurse
DX: R92.8 Other abnormal and inconclusive findings on diagnostic imaging of breast (principal)

== ENCOUNTER 2022-03-18 12:41 | Outpatient (CLI) | payer MEDICARE ==
--- NOTE | 2022-03-18 14:17 | XRAY Report ---
PROCEDURE: Lumbar Spine 2 View INDICATIONS: CERVICAL STRAIN, LUMBAR BACK PAIN TECHNIQUE: 3 views of the lumbar spine were acquired. COMPARISON: None. FINDINGS: Bones: 5 pme-btg-qxgeopu vertebrae are present. There are multilevel degenerative changes with anter ior osteophytes at multiple levels. There is facet arthrosis in the lower lumbar spine. Grade 1 anter olisthesis of L3-4. Disc space narrowing at L4-5. The T12-L1 and L1-2 discs are seen obliquely but ap pear to not be narrowed. Rightward curvature of the thoracolumbar spine. There is normal bony alignme nt. No vertebral body compression fractures. No suspicious bony lesions. Soft tissues: Overlying bowel gas pattern is normal. No suspicious soft tissue calcifications. IMPRESSION: 1. Multilevel facet arthrosis in the lumbar spine with resulting grade 1 anterolisthesis of L3-4. 2. Disc disease with disc space narrowing at L4-5. Reviewed by: Aries Gaxiola on 03/18/2022 2:16 PM PDT Approved by: Aries Gaxiola on 03/18/2022 2:16 PM PDT Station ID: [id number]
--- NOTE | 2022-03-18 16:07 | XRAY Report ---
PROCEDURE: Cervical Spine 2 View INDICATIONS: CERVICAL STRAIN TECHNIQUE: 3 view(s) of the cervical spine were acquired. COMPARISON: None. FINDINGS: Bones: Lateral view extends to the C6 level. Trace anterolisthesis of C4 on C5. There is mild height loss of the C5 vertebral body, age-indeterminate. Moderate spondylotic changes in the mid and lower c ervical spine. Reversal of normal cervical lordosis. Normal C1 on C2 alignment. Soft tissues: No prevertebral soft tissue swelling. IMPRESSION: Moderate spondylosis, and age-indeterminate mild height loss of the C5 vertebral body. T race C4 on C5 anterolisthesis. If necessary, consider MRI for further evaluation. Reviewed by: Dirk Ortiz MD on 03/18/2022 4:06 PM PDT Approved by: Dirk Ortiz MD on 03/18/2022 4:06 PM PDT Station ID: [id number]
== END 2022-03-18 12:42 | disposition home or self-care (01) ==
LOC: DI.S 12:41
PROVIDERS: ATTEND Physician Assistant Medical
DX: M47.22 Other spondylosis with radiculopathy, cervical region (principal); M43.12 Spondylolisthesis, cervical region; M47.816 Spondylosis without myelopathy or radiculopathy, lumbar region; M43.16 Spondylolisthesis, lumbar region; M51.36 Other intervertebral disc degeneration, lumbar region

== ENCOUNTER 2022-03-26 12:22 | Outpatient (CLI) | payer MEDICARE ==
--- NOTE | 2022-03-26 17:01 | DEXA Report ---
PROCEDURE: Dexa Spine and/or Hip INDICATIONS: SCREENING FOR OSTEOPOROSIS TECHNIQUE: Dual energy x-ray absorptiometry (DXA) was performed on a [employer]. Regions measur ed are the AP Spine, femoral neck, and if needed forearm. COMPARISON: 11/05/2013 FINDINGS: Lumbar Spine: Bone Mineral Density 1.383 g/cm/cm,T score 1.7, previously 1.250 density. Within normal range Left Hip: Bone Mineral Density 1.037 g/cm/cm,T score 0.2, previously 1.178 density. Within normal range Left Femoral Neck: Bone Mineral Density 0.887 g/cm/cm, T score -1.1, osteopenia (T score greater or equal to -1.0: NORMAL) (T score from -1.1 to -2.4: OSTEOPENIA) (T score less than or equal to -2.5 to: OSTEOPOROSIS) Impression: Bone mineral density has decreased in the left hip but increased in the lumbar spine Patients with diagnosis of osteoporosis or osteopenia should have regular bone mineral density assess ment. For those eligible for Medicare, routine testing is allowed once every 2 years. Testing frequ ency can be increased for patients who have rapidly progressing disease or for those who are receivin g medical therapy to restore bone mass. Reviewed by: Yogi Corey MD on 03/26/2022 3:59 PM JONO Approved by: Yogi Corey MD on 03/26/2022 3:59 PM JONO Station ID: [id number]
== END 2022-03-26 12:23 | disposition home or self-care (01) ==
LOC: DI 12:22
PROVIDERS: ATTEND Physician Assistant Medical
DX: Z13.820 Encounter for screening for osteoporosis (principal); M85.88 Other specified disorders of bone density and structure, other site

== ENCOUNTER 2022-03-26 12:25 | Outpatient (CLI) | payer MEDICARE ==
--- NOTE | 2022-03-27 10:14 | Ultrasound Report ---
LIMITED ULTRASOUND OF LEFT BREAST: 03/26/2022 CLINICAL: 6 month follow-up of cysts. Comparison is made to exams dated: 07/04/2021 ultrasound, 07/04/2021 mammogram, 10/05/2020 ultrasound, 10/05/2020 mammogram, 09/13/2020 mammogram, and 10/06/2017 mammogram - [facility]. Color flow ultrasound of the left breast 3 o'clock, and retroareolar regions was performed. Short sc liliana images of the real-time examination were reviewed. There is a stable 0.4 cm x 0.5 cm x 0.2 cm cyst in the left breast central to the nipple in the retro areolar region. There also is a 0.5 cm x 0.6 cm x 0.2 cm cyst in the left breast at 3 o'clock anterior depth 2 cm fro m the nipple. This abnormality is not significantly changed. IMPRESSION: PROBABLY BENIGN The stable 0.4 cm x 0.5 cm x 0.2 cm cyst in the left breast central to the nipple in the retroareolar region is consistent with a complicated cyst and is probably benign. A follow-up in 6 months is rec ommended. The 0.5 cm x 0.6 cm x 0.2 cm cyst in the left breast at 3 o'clock anterior depth most likely is a com plicated cyst and is probably benign. A follow-up in 6 months is recommended. A follow-up mammogram and an ultrasound in 6 months is recommended to demonstrate stability. Patient was scheduled for mammography during today's visit. She declined due to insurance coverage. This exam was interpreted at Station ID: [id number]. Electronically Signed By: Dirk Ortiz M.D. lc/:03/26/2022 13:51:32 Ultrasound BI-RADS: 3 Probably benign BI-RADS CATEGORY: (3) - 3 Mammo and US [id number] 6 month follow-up LATERALITY: (B)
== END 2022-03-26 12:26 | disposition home or self-care (01) ==
LOC: DI 12:25
PROVIDERS: ATTEND Registered Nurse
DX: R92.8 Other abnormal and inconclusive findings on diagnostic imaging of breast (principal); N60.02 Solitary cyst of left breast

== ENCOUNTER 2022-05-16 09:12 | Emergency (ER) | payer MEDICARE ==
[2022-05-16] MEDS ORDERED: IPRATROPIUM/ALBUTEROL 3 ML NEB INH STA (09:35)
[2022-05-16] MEDS ORDERED: predniSONE 20 MG TABLET PO STA (09:35)
--- NOTE | 2022-05-16 09:40 | ED Physician Documentation ---
PD HPI URI - Stated complaint Stated Complaint: SOA/RUNNY NOSE - Chief complaint Chief Complaint: Resp - History obtained from History obtained from: Patient - History of Present Illness Timing - onset: Yesterday Timing details: Gradual onset Pain level max: 0 Pain level now: 0 Associated symptoms: Nasal congestion, Rhinorrhea, Dry cough, Dyspnea. No: Fever Contributing factors: COPD / asthma Improves by: Rest, MDI/nebulizer - Additional information Additional information: Patient is a 72-year-old female with a history of asthma who presents to the emergency department with increased work of breathing since last night, rhinorrhea, congestion. Negative COVID test yesterday. Better with her inhaler, nothing makes it worse. No fevers. Review of Systems Constitutional: denies: Fever, Chills Nose: reports: Rhinorrhea / runny nose, Congestion Respiratory: reports: Dyspnea, Cough, Wheezing GI: denies: Vomiting, Diarrhea Skin: denies: Rash Musculoskeletal: denies: Neck pain, Back pain Neurologic: denies: Headache PD PAST MEDICAL HISTORY - Past Medical History Cardiovascular: Hypertension Respiratory: Asthma Psych: Anxiety - Past Surgical History Past Surgical History: Yes HEENT: Tonsil/Adenoidectomy - Present Medications Home Medications: Ambulatory Orders Medication Instructions Recorded Confirmed Cyclobenzaprine [Flexeril] 10 mg PO TID PRN #20 tablet 03/22/13 FLUoxetine [PROzac] 10 mg PO DAILY 03/22/13 03/22/13 Fluticasone/Salmeterol [Advair 1 each IH DAILY 03/22/13 03/22/13 250-50 Diskus] HYDROcod/ACETAM 5/325 [Vicodin 1 - 2 ea PO Q6H PRN #15 tablet 03/22/13 5/325] Omeprazole [PriLOSEC] 20 mg PO DAILY 03/22/13 03/22/13 hydroCHLOROthiazide [Hydrodiuril] 25 mg PO DAILY 03/22/13 03/22/13 predniSONE [Deltasone] 60 mg PO DAILY 5 Days tablet 03/22/13 Baloxavir Marboxil [Xofluza] 80 mg PO ONCE #1 tablet 05/16/22 predniSONE [Deltasone] 40 mg PO DAILY #10 tablet 05/16/22 - Allergies Allergies/Adverse Reactions: Allergies Allergy/AdvReac Type Severity Reaction Status Date / Time Sulfa (Sulfonamide Allergy Mild Rash Verified 05/16/22 09:27 Antibiotics) Penicillins Allergy Unknown Verified 05/16/22 09:27 - Social History Does the pt smoke?: No Smoking Status: Never smoker Does the pt drink ETOH?: Yes PD ED PE NORMAL - Vitals Vital signs reviewed: Yes - General General: Alert and oriented X 3, No acute distress, Well developed/nourished - HEENT HEENT: Ears normal, Moist mucous membranes, Pharynx benign - Neck Neck: Supple, no meningeal sign - Cardiac Cardiac: RRR - Respiratory Respiratory: No respiratory distress, Clear bilaterally, Other (Mild wheezing bilaterally) - Abdomen Abdomen: Normal bowel sounds, Soft, Non tender, Non distended - Derm Derm: Warm and dry - Extremities Extremities: No edema - Neuro Neuro: Alert and oriented X 3 - Psych Psych: Normal mood, Normal affect Results - Vitals Vitals: Vital Signs - 24 hr 05/16/22 05/16/22 05/16/22 09:24 10:21 11:18 Temperature 37.1 C Heart Rate 113 H 78 71 Respiratory 16 17 18 Rate Blood Pressure 152/90 H 137/84 H O2 Saturation 95 95 Oxygen O2 Source Room air - Labs Labs: Laboratory Tests 05/16/22 09:40 Nasal Adenovirus (PCR) NOT DETECTED Nasal B. parapertussis DNA (PCR) NOT DETECTED Nasal Coronavir 229E PCR NOT DETECTED Nasal Coronavir HKU1 PCR NOT DETECTED Nasal Coronavir NL63 PCR NOT DETECTED Nasal Coronavir OC43 PCR NOT DETECTED Nasal Enterovir/Rhinovir PCR NOT DETECTED Nasal Influenza A H3 PCR DETECTED A Nasal Influenza B PCR NOT DETECTED Nasal Parainfluen 1 PCR NOT DETECTED Nasal Parainfluen 2 PCR NOT DETECTED Nasal Parainfluen 3 PCR NOT DETECTED Nasal Parainfluen 4 PCR NOT DETECTED Nasal RSV (PCR) NOT DETECTED Nasal B.pertussis DNA PCR NOT DETECTED Nasal C.pneumoniae (PCR) NOT DETECTED Brooks Human Metapneumo PCR NOT DETECTED Nasal M.pneumoniae (PCR) NOT DETECTED Nasal SARS-CoV-2 (PCR) NOT DETECTED - Rads (name of study) Chest x-ray Radiology: Final report received, EMP read contemporaneously, See rad report (No acute abnormality) PD MEDICAL DECISION MAKING - ED course Complexity details: reviewed results, re-evaluated patient, considered differential, d/w patient, d/w family ED course: 72-year-old female, well-appearing, nontoxic. No hypoxia or respiratory distress. No acute findings on chest x-ray. Positive for influenza A. Discussed treatments for influenza, we will start on Xofluza. We will also place on prednisone for the wheezing. She states she has a brand-new inhaler at home. A spacer was given here. No evidence of pneumonia or sepsis. Patient counseled regarding signs and symptoms for which I believe and urgent re- evaluation would be necessary. Patient with good understanding of and agreement to plan and is comfortable going home at this time This document was made in part using voice recognition software. While efforts are made to proofread this document, sound alike and grammatical errors may occur. Departure - Departure Disposition: 01 Home, Self Care Clinical Impression: Influenza A Condition: Good Instructions: ED Flu Follow-Up: Emma Black ARNP [Primary Care Provider] - As Needed Prescriptions: predniSONE [Deltasone] 40 mg PO DAILY #10 tablet Baloxavir Marboxil [Xofluza] 80 mg PO ONCE #1 tablet Comments: Your prescriptions were sent to [facility]. Please follow-up with your doctor for further care. You have tested positive for influenza today. Discharge Date/Time: 05/16/22 11:18
[2022-05-16 10:51] LABS: B. PARAPERTUSSIS- RESP PCR PAN NOT DETECTED; B. PERTUSSIS- RESP PCR PANEL NOT DETECTED; C. PNEUMONIAE- RESP PCR PANEL NOT DETECTED; CORONAVIRUS 229E-RESP PCR NOT DETECTED; CORONAVIRUS HKU1-RESP PCR NOT DETECTED; CORONAVIRUS NL63-RESP PCR NOT DETECTED; CORONAVIRUS OC43-RESP PCR NOT DETECTED; HUMAN METAPNEUMOVIRUS NOT DETECTED; INFLUENZA A H3- RESP PCR PANEL DETECTED; INFLUENZA B - RESP PCR PANEL NOT DETECTED; M. PNEUMONIAE- RESP PCR PANEL NOT DETECTED; PARAINFLUENZA VIRUS 1 NOT DETECTED; PARAINFLUENZA VIRUS 2 NOT DETECTED; PARAINFLUENZA VIRUS 3 NOT DETECTED; PARAINFLUENZA VIRUS 4 NOT DETECTED; RHINOVIRUS/ENTEROVIRUS NOT DETECTED; RSV- RESP PCR PANEL NOT DETECTED; SARS-CoV-2 -RESP PCR PANEL NOT DETECTED
--- NOTE | 2022-05-16 10:54 | XRAY Report ---
PROCEDURE: Chest 1 View X-Ray INDICATIONS: chest pain TECHNIQUE: One view of the chest was acquired. COMPARISON: 10/31/2020, 04/15/2019 FINDINGS: Surgical changes and devices: None. Lungs and pleura: No pleural effusions or pneumothorax. Lungs are clear. Mediastinum: Mediastinal contours appear normal. Heart size is normal. Bones and chest wall: No suspicious bony lesions. Age-appropriate degenerative changes are seen. O verlying soft tissues appear unremarkable. IMPRESSION: Portable chest within normal limits for age. Reviewed by: Bradley Mora MD on 05/16/2022 9:53 AM [facility] Approved by: Bradley Mora MD on 05/16/2022 9:53 AM [facility] Station ID: [id number]
[2022-05-16 11:19] VITALS: BP 137/84
== END 2022-05-16 11:18 | disposition home or self-care (01) ==
LOC: ED 09:12
DX: J10.1 Influenza due to other identified influenza virus with other respiratory manifestations (principal)
CPT/HCPCS: 71045; 87633; 94640; 99282; 99284; J7512

== ENCOUNTER 2022-07-24 10:44 | Outpatient (CLI) | payer MEDICARE ==
--- NOTE | 2022-07-25 13:08 | Mammography Report ---
BILATERAL DIGITAL DIAGNOSTIC MAMMOGRAM 3D/2D: 07/24/2022 CLINICAL: Short term follow up of the right breast, due for bilateral imaging. Comparison is made to exams dated: 07/04/2021 mammogram, 10/05/2020 mammogram, 09/13/2020 mammogram, mammogram, and 03/26/2022 ultrasound - [facility]. Both breasts are heterogeneously dense, which may obscure small masses (category c / 51-75% glandular tissue). There is a stable focal asymmetry in the left breast central to the nipple in the retroareolar region . No other significant masses, calcifications, or other findings are seen in either breast. IMPRESSION: INCOMPLETE: NEEDS ADDITIONAL IMAGING EVALUATION Stable focal asymmetry in the left breast is indeterminate. An ultrasound is recommended. Patient will return on 09/24/2022 for ultrasound evaluation/follow-up. Exam findings were conveyed to the patient. Based on the Tyrer Cuzick model (a risk assessment model) the patients lifetime risk is 13.3% and he r 10 year risk is 10.1%. According to the ACR, ACS, and NCCN guidelines, an annual breast MRI exam al [place]te with mammogram is recommended if the patients lifetime risk is 20% or greater. This exam was interpreted at Station ID: [id number]. NOTE: For mammograms, a report in lay terms will be sent to the patient. Approximately 15% of breast malignancies will not be visualized mammographically. In the management of a palpable breast mass, a negative mammogram must not discourage biopsy of a clinically suspicious lesion. Electronically Signed By: Donavan Alan M.D. slc/:07/24/2022 11:31:18 ACR BI-RADS Category 0: Incomplete 3340F PARENCHYMAL PATTERN: (D) - The breast(s) demonstrate(s) heterogeneously dense fibroglandular parenchy ma. BI-RADS CATEGORY: (0) - 0 Ultrasound [id number] 2 month follow-up LATERALITY: (B)
== END 2022-07-24 10:45 | disposition home or self-care (01) ==
LOC: DI 10:44
PROVIDERS: ATTEND Registered Nurse
DX: R92.8 Other abnormal and inconclusive findings on diagnostic imaging of breast (principal)

== ENCOUNTER 2022-10-23 12:38 | Outpatient (CLI) | payer MEDICARE ==
--- NOTE | 2022-10-24 12:26 | Ultrasound Report ---
LIMITED ULTRASOUND OF LEFT BREAST: 10/23/2022 CLINICAL: Patient returns today to evaluate a focal asymmetry in the left breast. Comparison is made to exams dated: 07/24/2022 mammogram, 03/26/2022 ultrasound, 07/04/2021 ultrasound, mammogram, 10/05/2020 ultrasound, and 10/05/2020 mammogram - [facility]. Ultrasound of the left breast retroareolar was performed. Short scale [facility]. There is a benign 0.5 cm x 0.6 cm x 0.2 cm cyst in the left breast central to the nipple in the retro areolar region. There also is a benign 0.4 cm x 0.3 cm x 0.2 cm cyst in the left breast at 3 o'clock posterior depth. IMPRESSION: BENIGN There is no sonographic evidence of malignancy. The 0.5 cm x 0.6 cm x 0.2 cm cyst in the left breast central to the nipple in the retroareolar region is consistent with a simple cyst and is benign. The 0.4 cm x 0.3 cm x 0.2 cm cyst in the left breast at 3 o'clock posterior depth is consistent with a simple cyst and is benign. A 1 year screening mammogram is recommended. This exam was interpreted at Station ID: [id number]. Electronically Signed By: Aries Gaxiola M.D. acr/:10/23/2022 14:29:46 Ultrasound BI-RADS: 2 Benign BI-RADS CATEGORY: (2) - 2 Mammogram [id number] 1 year screening LATERALITY: (B)
== END 2022-10-23 12:39 | disposition home or self-care (01) ==
LOC: DI 12:38
PROVIDERS: ATTEND Registered Nurse
DX: R92.8 Other abnormal and inconclusive findings on diagnostic imaging of breast (principal); N60.12 Diffuse cystic mastopathy of left breast

== ENCOUNTER 2022-12-05 14:47 | Outpatient (CLI) | payer MEDICARE, MEDICAID ==
[2022-12-05 20:09] LABS: ALBUMIN 3.8 g/dL (3.2-5.5); ALBUMIN/GLOBULIN RATIO 1.2 (1.0-2.2); BILIRUBIN,TOTAL 0.7 mg/dL (0.2-1.0); CALCIUM 8.9 mg/dL (8.5-10.3); CREATININE 0.8 mg/dL (0.4-1.0); POTASSIUM 3.6 mmol/L (3.5-5.0); TOTAL PROTEIN 6.9 g/dL (6.7-8.2)
== END 2022-12-05 14:48 | disposition home or self-care (01) ==
LOC: LAB.S 14:47
PROVIDERS: ATTEND Internal Medicine Gastroenterology
DX: K82.4 Cholesterolosis of gallbladder (principal); R79.89 Other specified abnormal findings of blood chemistry; R25.1 Tremor, unspecified
CPT/HCPCS: 36415; 80053; 82962

== ENCOUNTER 2022-12-16 08:40 | Outpatient (CLI) | payer MEDICARE, MEDICAID ==
--- NOTE | 2022-12-16 14:28 | Ultrasound Report ---
PROCEDURE: Abdomen Limited INDICATIONS: POLYP OF GALLBLADDER, ELEVATED LFT'S TECHNIQUE: Real-time focused scanning was performed of the abdomen, with image documentation. COMPARISONS: Ultrasound abdomen, limited, 02/14/2020, 12/29/2015 and 12/06/2014. FINDINGS: Liver: Liver is normal in size and demonstrates diffusely increased echotexture. Gallbladder: There are non mobile gallstones versus gallbladder polyp. No gallbladder wall thickening , pericholecystic progression or sonographic Fung sign. Biliary ducts: Intrahepatic bile ducts are non-dilated. Extrahepatic bile duct caliber measures 7 m m. Normal is 6-7 mm. Pancreas: Visualized portions of the pancreas are sonographically normal. Right kidney: Normal in size and echotexture. Right kidney measures 9.9 cm long. No hydronephrosis. Echogenic foci in right kidney are suspicious for renal stones. No solid masses. No complex renal cy stic lesions which require follow-up. Aorta: Visualized aorta is normal in caliber at less than 3 cm. Miscellaneous: No free abdominal fluid. IMPRESSION: 1. Non-mobile gallstones versus small gallbladder polyps. If clinically indicated, MRCP may be helpfu l. 2. Common bile duct is at upper limit of normal in caliber. 3. Diffuse increased hepatic echotexture most likely secondary to fatty infiltration. Other hepatocel lular disease could have a similar appearance. Please correlate with liver function tests. 4. Suspect nonobstructive right renal calculi. Reviewed by: Milton Otto MD on 12/16/2022 2:27 PM PDT Approved by: Milton Otto MD on 12/16/2022 2:27 PM PDT Station ID: [id number]
== END 2022-12-16 08:41 | disposition home or self-care (01) ==
LOC: DI 08:40
PROVIDERS: ATTEND Internal Medicine Gastroenterology
DX: K82.4 Cholesterolosis of gallbladder (principal); R79.89 Other specified abnormal findings of blood chemistry

== ENCOUNTER 2023-03-06 09:29 | Outpatient (CLI) | payer MEDICARE, MEDICAID ==
[2023-03-06] MEDS ORDERED: LIDOCAINE-MPF 1% 5 ML VIAL TD ONE (11:14)
--- NOTE | 2023-03-07 12:01 | Ultrasound Report ---
LIMITED ULTRASOUND OF LEFT BREAST: 03/06/2023 CLINICAL: Palpable left breast lump. Comparison is made to exams dated: 03/06/2023 mammogram, 10/23/2022 ultrasound, 07/24/2022 mammogram, 03/26/2022 ultrasound, 07/04/2021 ultrasound, and 10/05/[address] ultrasound - [facility]. Color flow and real-time ultrasound of the left breast 6 o'clock region were performed. Short scale images of the real-time examination were reviewed. There is an intramammary lymph node in the left breast at 6 o'clock, 3 cm from the nipple correspondi ng to area of palpable concern. No sonographic correlate for focal asymmetry is seen along the 6 o'clock axis. IMPRESSION: SUSPICIOUS OF MALIGNANCY 1) Left breast developing asymmetry at 6 o'clock posterior depth without a sonographic correlate. Fin ding is suspicious. Recommend stereotactic core biopsy using a lateral or MLO approach. 2) Morphologically normal intramammary lymph node at 6 o'clock corresponding to area of palpable conc hayden. Findings and recommendations were discussed with the patient by Dr. Madrigal at the time of imaging comp letion. This exam was interpreted at Station ID: [id number]. Electronically Signed By: Alisha Church M.D. esb/:03/06/2023 22:17:44 Ultrasound BI-RADS: 4 Suspicious for malignancy BI-RADS CATEGORY: (4) - 4 Biopsy [id number] Immediate follow-up LATERALITY: (L)
--- NOTE | 2023-03-07 12:01 | Mammography Report ---
UNILATERAL LEFT DIGITAL DIAGNOSTIC MAMMOGRAM 3D/2D WITH LATEROMEDIAL SPOT COMPRESSION: 03/06/2023 CLINICAL: Palpable left breast lump. Comparison is made to exams dated: 07/24/2022 mammogram, 07/04/2021 mammogram, 10/05/2020 mammogram, 08/22 mammogram, and 10/06/2017 mammogram - [facility]. The left breast is heterogeneously dense, which may obscure small masses (category c / 51-75% glandul ar tissue). A BB marker was placed over the area of clinical concern in the lower inner quadrant middle depth, a nd no mammographic abnormality is identified. In the left breast 6 o'clock posterior depth, there is a developing focal symmetry. No other significant masses or calcifications are seen in the breast. IMPRESSION: INCOMPLETE: NEEDS ADDITIONAL IMAGING EVALUATION 1) No mammographic abnormality in the area of palpable concern in the lower inner quadrant middle dep th. Recommend further evaluation with targeted left breast ultrasound, which will immediately follow this exam 2) Developing focal asymmetry in the left breast 6 o'clock posterior depth. Recommend further evaluat ion with targeted left breast ultrasound, which will immediately follow this exam. Based on the Tyrer Cuzick model (a risk assessment model) the patients lifetime risk is 13.3% and he r 10 year risk is 10.1%. According to the ACR, ACS, and NCCN guidelines, an annual breast MRI exam al [place]te with mammogram is recommended if the patients lifetime risk is 20% or greater. This exam was interpreted at Station ID: [id number]. NOTE: For mammograms, a report in lay terms will be sent to the patient. Approximately 15% of breast malignancies will not be visualized mammographically. In the management of a palpable breast mass, a negative mammogram must not discourage biopsy of a clinically suspicious lesion. Electronically Signed By: Alisha Church M.D. esb/:03/06/2023 22:18:45 ACR BI-RADS Category 0: Incomplete 3340F PARENCHYMAL PATTERN: (D) - The breast(s) demonstrate(s) heterogeneously dense fibroglandular parenchy ma. BI-RADS CATEGORY: (0) - 0 Ultrasound [id number] Immediate follow-up LATERALITY: (B)
== END 2023-03-06 09:30 | disposition home or self-care (01) ==
LOC: DI 09:29
PROVIDERS: ATTEND Physician Assistant Medical
DX: N63.20 Unspecified lump in the left breast, unspecified quadrant (principal); R92.8 Other abnormal and inconclusive findings on diagnostic imaging of breast

== ENCOUNTER 2023-06-24 08:00 | Outpatient (CLI) | payer MEDICARE | END 2023-06-24 08:01 | disposition home or self-care (01) | LOC: LAB.S 08:00 | PROVIDERS: ATTEND Registered Nurse | DX: R05.1 Acute cough (principal) ==

== ENCOUNTER 2023-06-24 08:00 | Outpatient (CLI) | payer MEDICARE, MEDICAID ==
--- NOTE | 2023-06-24 11:24 | XRAY Report ---
PROCEDURE: Chest 2V INDICATIONS: ACUTE COUGH TECHNIQUE: 2 views of the chest were acquired. COMPARISON: None. FINDINGS: Surgical changes and devices: None. Lungs and pleura: Retrocardiac consolidation, seen only on the lateral view. Mediastinum: Mediastinal contours appear normal. Heart size is normal. Bones and chest wall: No suspicious bony lesions. Overlying soft tissues appear unremarkable. IMPRESSION: Retrocardiac consolidation, seen only on the lateral view. Findings are suspicious for infection, les s likely malignancy. Recommend follow-up in 1-2 months with 2 view chest x-ray to ensure resolution. Reviewed by: Lalit Jung MD on 06/24/2023 11:22 AM [facility] Approved by: Lalit Jung MD on 06/24/2023 11:22 AM PST Station ID: [id number]
== END 2023-06-24 23:59 | disposition home or self-care (01) ==
LOC: DI.S 08:00
PROVIDERS: ATTEND Registered Nurse
DX: R05.1 Acute cough (principal); R91.8 Other nonspecific abnormal finding of lung field

== ENCOUNTER 2023-06-29 09:29 | Outpatient (CLI) | payer MEDICARE ==
[2023-06-29 10:00] LABS: CREATININE 0.9 mg/dL (0.6-1.3)
[2023-06-29] MEDS ORDERED: iohexoL-300 100 ML VIAL IVP ONE (12:04)
--- NOTE | 2023-06-30 01:16 | CT Report ---
PROCEDURE: Chest W INDICATIONS: ABN CHEST RADIOGRAPH CONTRAST: Omni 300 100ml TECHNIQUE: After the administration of intravenous contrast, a CT scan of the chest was performed. Images were recorded and evaluated at appropriate window settings. Reformats: axial MIP of the chest, coronal and sagittal. For radiation dose reduction, the following was used: automated exposure control, adjustme nt of mA and/or kV according to patient size. COMPARISON: Chest radiograph 06/24/2023. FINDINGS: Image quality: Diagnostic. Lungs and pleura: No consolidation. No pleural effusions. No pneumothorax. A few scattered pulmonary micronodules, for example 3 mm left upper lobe nodule (3/64, MIP image 33). There are triangular-sha ped superficial nodules along the right major and left fissure consistent with subfissural lymph node s. Mediastinum: Heart size is normal. No pericardial effusion. No large vessel abnormality. No mediastin al adenopathy by size criteria. Chest wall and lower neck: Thyroid is unremarkable. No axillary or supraclavicular adenopathy by size . Bones: No acute or suspicious osseous abnormality. Upper Abdomen: Unremarkable. IMPRESSION: No focal airspace consolidation. A few scattered pulmonary micronodules measuring up to 3 mm. If patient is high risk for lung maligna ncy, recommend follow-up CT chest in 12 months to demonstrate stability. Reviewed by: Alisha Church MD on 06/30/2023 1:14 AM PST Approved by: Alisha Church MD on 06/30/2023 1:14 AM PST Station ID: [id number]
== END 2023-06-29 09:30 | disposition home or self-care (01) ==
LOC: LAB 09:29
PROVIDERS: ATTEND Registered Nurse
DX: R91.8 Other nonspecific abnormal finding of lung field (principal); R05.1 Acute cough; C50.912 Malignant neoplasm of unspecified site of left female breast
CPT/HCPCS: 36415; 71260; 82565; Q9967

== ENCOUNTER 2023-10-07 10:54 | Outpatient (CLI) | payer MEDICARE ==
[2023-10-07 14:48] LABS: BASOPHILS # (AUTO) 0.1 10^3/uL (0.0-0.1); EOSINOPHILS # (AUTO) 0.8 10^3/uL (0.0-0.7); EOSINOPHILS % (AUTO) 8.3 %; HCT - HEMATOCRIT 44.5 % (37.0-47.0); HGB - HEMOGLOBIN 13.8 g/dL (12.0-16.0); LYMPHOCYTES # (AUTO) 2.6 10^3/uL (1.5-3.5); LYMPHOCYTES % (AUTO) 29.1 %; MEAN CORPUSCULAR HEMOGLOBIN 29.1 pg (27.0-31.0); MEAN CORPUSCULAR VOLUME 93.7 fL (81.0-99.0); MEAN PLATELET VOLUME 9.2 fL (7.9-10.8); MONOCYTES # (AUTO) 0.8 10^3/uL (0.0-1.0); MONOCYTES % (AUTO) 8.3 %; NEUTROPHILS # (AUTO) 4.8 10^3/uL (1.5-6.6); NEUTROPHILS % (AUTO) 53.1 %; PLT - PLATELET COUNT 326 10^3/uL (130-450); RED BLOOD COUNT 4.75 10^6/uL (4.20-5.40); RED CELL DISTRIBUTION WIDTH 13.6 % (12.0-15.0)
[2023-10-07 15:28] LABS: THYROID STIMULATING HORMONE 1.03 uIU/mL (0.34-5.60)
[2023-10-07 16:28] LABS: ALBUMIN 3.9 g/dL (3.2-5.5); ALBUMIN/GLOBULIN RATIO 1.4 (1.0-2.2); ALKALINE PHOSPHATASE 63 IU/L (42-121); ALT ALANINE AMINOTRANSFERASE 33 IU/L (10-60); AST ASPARTATE AMINOTRANSFERASE 33 IU/L (10-42); BILIRUBIN,TOTAL 0.8 mg/dL (0.2-1.0); BUN - BLOOD UREA NITROGEN 13 mg/dL (6-20); CALCIUM 10.1 mg/dL (8.5-10.3); CARBON DIOXIDE - CO2 32 mmol/L (21-32); CHLORIDE 103 mmol/L (101-111); CHOL/HDL RATIO 2.2 (<4.4); CHOLESTEROL 149 mg/dL; CREATININE 0.8 mg/dL (0.6-1.3); GFR - MDRD 70 (>89); GLUCOSE 104 mg/dL (74-104); HDL CHOLESTEROL 67 mg/dL; LDL CHOLESTEROL,CALCULATED 64 mg/dL; POTASSIUM 3.9 mmol/L (3.5-4.5); SODIUM 141 mmol/L (135-145); TOTAL PROTEIN 6.7 g/dL (6.4-8.9); TRIGLYCERIDES 91 mg/dL (48-352); VLDL CHOLESTEROL 18 mg/dL
== END 2023-10-07 10:55 | disposition home or self-care (01) ==
LOC: LAB.S 10:54
PROVIDERS: ATTEND Registered Nurse
DX: Z13.228 Encounter for screening for other metabolic disorders (principal); Z13.220 Encounter for screening for lipoid disorders; Z13.29 Encounter for screening for other suspected endocrine disorder; Z13.0 Encounter for screening for diseases of the blood and blood-forming organs and certain disorders involving the immune mechanism
CPT/HCPCS: 36415; 80053; 80061; 83721; 84443; 85025